=== PATIENT | female | born 1950 | race African-American/Black ===

== ENCOUNTER 2020-08-10 13:03 | Inpatient (IN) | payer MEDICARE, MEDICAID ==
[~2020-08-10] VITALS: Ht 160 cm; Wt 98.5 kg
[2020-08-10] MEDS ORDERED: ALBUTEROL (0.083%) 2.5MG/3ML NEB HHN STA (14:38)
[2020-08-10] MEDS ORDERED: IPRATROPIUM BROMIDE (0.02%) 0.5MG/2.5ML NEB HHN STA (14:38)
[2020-08-10] MEDS ORDERED: METHYLPREDNISOLONE SOD SUCC 125 MG/2 ML VIAL IV STA (14:38)
[2020-08-10] MEDS ORDERED: LEVOFLOXACIN 750MG PREMIX 150 ML IV STA (14:38)
[2020-08-10] MEDS ORDERED: SODIUM CHLORIDE 0.9% 500 ML IV ONE (14:45)
[2020-08-10 15:17] LABS: CHLORIDE 99 mEq/L (98-107)
[2020-08-10 15:18] LABS: BASOPHILS % 0.2 % (0.0-2.0); EOSINOPHILS % 0.1 % (0.0-5.0); HEMATOCRIT. 41.4 % (36.0-48.0); HEMOGLOBIN. 14.4 g/dL (12.0-16.0); LYMPHOCYTES % 11.6 % (20.0-50.0); MEAN CORPUSCULAR HEMOGLOBIN 31.6 pg (28.0-32.0); MEAN CORPUSCULAR VOLUME 90.9 fL (81.0-99.0); MEAN PLATELET VOLUME 8.5 fl (7.4-10.4); MONOCYTES % 12.2 % (2.0-8.0); NEUTROPHILS % 75.9 % (40.0-76.0); PLATELET 156 x1000/uL (130-400); RED BLOOD CELL COUNT 4.55 mill/uL (4.2-5.4); RED CELL DISTRIBUTION WIDTH 15.6 % (11.6-14.6)
[2020-08-10] MEDS ORDERED: ENOXAPARIN 40MG/0.4ML SYR SUBCUT SCH (18:30)
[2020-08-10] MEDS ORDERED: ONDANSETRON HCL 4MG/2ML INJ IV PRN (18:30)
[2020-08-10] MEDS ORDERED: DIPHENHYDRAMINE 50MG/ML VIAL IV PRN (18:30)
[2020-08-10] MEDS ORDERED: IPRATROPIUM/ALBUTEROL 0.5-3(2.5)MG/3ML NEB HHN PRN (18:30)
[2020-08-10] MEDS ORDERED: CLONIDINE 0.1MG TABLET PO PRN (18:30)
[2020-08-10 21:10] VITALS: BP 126/57
[2020-08-10] MEDS ORDERED: PRED5TAB PO (22:18)
[2020-08-10] MEDS ORDERED: FLUT1AER PO (22:18)
[2020-08-10] MEDS ORDERED: DILT360C31 PO (22:18)
[2020-08-10] MEDS ORDERED: ALBU90AE2 (22:18)
[2020-08-10] MEDS ORDERED: MONT10TA32 PO (22:18)
[2020-08-10] MEDS ORDERED: GLIM2TAB30 PO (22:18)
[2020-08-10] MEDS ORDERED: PANT40TA51 PO (22:18)
[2020-08-10] MEDS ORDERED: UMEC1DIS IH (22:18)
[2020-08-10] MEDS ORDERED: FURO20TA4 PO (22:18)
[2020-08-10] MEDS ORDERED: METHYLPREDNISOLONE SOD SUCC 125 MG/2 ML VIAL IV SCH (22:30)
[2020-08-11] VITALS: BP 119/82
[2020-08-11] MEDS ORDERED: CEFTRIAXONE 1 G PREMIX 50 ML IV SCH (00:15)
[2020-08-11] MEDS ORDERED: PANTOPRAZOLE 40MG DR TABLET PO SCH (01:00)
[2020-08-11] MEDS ORDERED: DEXAMETHASONE 4MG/ML 1ML VIAL IV SCH (01:00)
[2020-08-11] MEDS: AZITHROMYCIN 500 MG in DEXT 5% WATER 250 ML IV SCH (02:33)
[2020-08-11] MEDS ORDERED: *PATIENT'S OWN MEDICATION STORAGE XX SCH (03:30)
[2020-08-11 04:00] VITALS: BP 111/72
[2020-08-11 06:24] LABS: BASOPHILS % 0.2 % (0.0-2.0); HEMATOCRIT. 41.6 % (36.0-48.0); HEMOGLOBIN. 13.9 g/dL (12.0-16.0); LYMPHOCYTES % 16.9 % (20.0-50.0); MEAN CORPUSCULAR HEMOGLOBIN 30.7 pg (28.0-32.0); MEAN CORPUSCULAR VOLUME 91.6 fL (81.0-99.0); MEAN PLATELET VOLUME 8.8 fl (7.4-10.4); MONOCYTES % 2.8 % (2.0-8.0); NEUTROPHILS % 80.1 % (40.0-76.0); PLATELET 165 x1000/uL (130-400); RED BLOOD CELL COUNT 4.54 mill/uL (4.2-5.4); RED CELL DISTRIBUTION WIDTH 15.6 % (11.6-14.6)
[2020-08-11 06:26] LABS: CHLORIDE 102 mEq/L (98-107)
[2020-08-11 06:33] LABS: LDL CHOLESTEROL 94 mg/dL (5-100)
[2020-08-11 06:34] LABS: HDL CHOLESTEROL 75 mg/dL (40-59)
[2020-08-11 08:00] VITALS: BP 99/57
[2020-08-11] MEDS: GLIMEPIRIDE 2MG TABLET PO SCH (08:35)
[2020-08-11] MEDS: FUROSEMIDE 20MG TABLET PO SCH (08:35)
[2020-08-11] MEDS: PANTOPRAZOLE 40MG DR TABLET PO SCH (08:35)
[2020-08-11] MEDS: CEFTRIAXONE 1,000 MG in DEXTROSE 5% WATER 50 ML IV SCH (08:39)
[2020-08-11] MEDS ORDERED: [UNRECOGNIZED DRUG - OTHER] IH SCH (09:00)
[2020-08-11 11:47] LABS: BG BASE EXCESS -3.4 mmol/L (-2.0-2.0); BG CARBOXYHEMOGLOBIN 0.8 % (0.5-1.5); BG DEOXYHEMOGLOBIN 4.9 % (0.0-5.0); BG FRACTION INSPIRED OXYGEN 44; BG HCO3 ACT 22.1 mmol/L (22.0-26.0); BG METHEMOGLOBIN 0.1 % (0.0-1.5); BG OXYGEN SATURATION 95.1 % (92.0-98.5); BG OXYHEMOGLOBIN 94.2 % (94.0-97.0); BG PCO2 41.5 mmHg (35.0-45.0); BG PH 7.344 (7.350-7.450); BG PO2 77.5 mmHg (75.0-100.0); BG SAMPLE SITE RIGHT RADIAL; BG TOTAL HEMOGLOBIN 14.7 g/dL (12.0-18.0); BG VENT MODE NASAL CANNULA
[2020-08-11 11:57] VITALS: BP 100/72
[2020-08-11] MEDS ORDERED: NON FORMULARY PATIENT HOME MED XX SCH (12:00)
[2020-08-11] MEDS ORDERED: FLUTICASONE/VILANTEROL 200-25 BLST.W.DEV ORI SCH (14:00)
[2020-08-11] MEDS: [UNRECOGNIZED DRUG - OTHER] XX SCH (14:00)
[2020-08-11] MEDS ORDERED: LEVOFLOXACIN 500MG PREMIX 100 ML IV SCH (15:30)
[2020-08-11 16:00] VITALS: BP 115/75
[2020-08-11] MEDS ORDERED: DEXTROSE 50% WATER 50ML SYRINGE IV PRN (16:00)
[2020-08-11] MEDS: MONTELUKAST SODIUM 10MG TABLET PO SCH (16:36)
[2020-08-11] MEDS: BLOOD SUGAR DIAGNOSTIC STRIP TEST SCH ×2 (16:49→21:00)
[2020-08-11] MEDS: INSULIN LISPRO 100 UNITS/ML SUBCUT SCH ×2 (17:03→21:00)
[2020-08-11] MEDS: ENOXAPARIN 30MG/0.3ML SYR SUBCUT SCH (17:03)
[2020-08-11 20:00] VITALS: BP 109/73
[2020-08-11 20:51] LABS: *AMPHETAMINES SCREEN URINE NEGATIVE (NEGATIVE); *BARBITURATES SCREEN URINE NEGATIVE (NEGATIVE); *BENZODIAZEPINES SCREEN URINE NEGATIVE (NEGATIVE); *COCAINE SCREEN URINE NEGATIVE (NEGATIVE)
[2020-08-11 20:52] LABS: CANNABINOID URINE SCREEN NEGATIVE (NEGATIVE); METHADONE URINE SCREEN NEGATIVE (NEGATIVE); OPIATES URINE SCREEN PRESUMTIVE POSITIVE (NEGATIVE); PHENCYCLIDINE URINE SCREEN NEGATIVE (NEGATIVE)
[2020-08-11] MEDS: ACETAMINOPHEN 325MG TABLET PO PRN (22:37)
[2020-08-12] VITALS: BP 92/59
[2020-08-12 04:00] VITALS: BP 91/68
[2020-08-12] MEDS: ACETAMINOPHEN 325MG TABLET PO PRN ×3 (04:33→21:36)
[2020-08-12] MEDS: ENOXAPARIN 30MG/0.3ML SYR SUBCUT SCH ×2 (05:20→17:16)
[2020-08-12] MEDS: BLOOD SUGAR DIAGNOSTIC STRIP TEST SCH ×4 (07:40→21:32)
[2020-08-12 08:00] VITALS: BP 102/66
[2020-08-12] MEDS: INSULIN LISPRO 100 UNITS/ML SUBCUT SCH ×4 (08:10→21:00)
[2020-08-12] MEDS: AZITHROMYCIN 500 MG in DEXT 5% WATER 250 ML IV SCH (08:23)
[2020-08-12] MEDS: GLIMEPIRIDE 2MG TABLET PO SCH (08:23)
[2020-08-12] MEDS: PANTOPRAZOLE 40MG DR TABLET PO SCH (08:23)
[2020-08-12] MEDS: FUROSEMIDE 20MG TABLET PO SCH (08:23)
[2020-08-12] MEDS: [UNRECOGNIZED DRUG - OTHER] XX SCH (08:24)
[2020-08-12] MEDS: CEFTRIAXONE 1,000 MG in DEXTROSE 5% WATER 50 ML IV SCH (08:29)
[2020-08-12] MEDS ORDERED: DEXAMETHASONE 10 MG/ML VIAL IV SCH ×2 (09:00→17:00)
[2020-08-12 12:00] VITALS: BP 96/69
[2020-08-12] MEDS: DEXAMETHASONE 4MG/ML 1ML VIAL IV SCH ×2 (14:08→21:36)
[2020-08-12 16:00] VITALS: BP 92/65
[2020-08-12] MEDS: MONTELUKAST SODIUM 10MG TABLET PO SCH (16:28)
[2020-08-12 20:00] VITALS: BP 104/71
[2020-08-13] VITALS: BP 97/73
[2020-08-13 04:00] VITALS: BP 127/82
[2020-08-13] MEDS: ENOXAPARIN 30MG/0.3ML SYR SUBCUT SCH ×2 (05:25→17:15)
[2020-08-13] MEDS: DEXAMETHASONE 4MG/ML 1ML VIAL IV SCH ×3 (05:25→21:09)
[2020-08-13] MEDS: ACETAMINOPHEN 325MG TABLET PO PRN ×3 (06:13→21:10)
[2020-08-13] MEDS: BLOOD SUGAR DIAGNOSTIC STRIP TEST SCH ×4 (07:28→21:10)
[2020-08-13 08:00] VITALS: BP 123/83
[2020-08-13 08:01] LABS: HEMATOCRIT. 41.9 % (36.0-48.0); MEAN CORPUSCULAR HEMOGLOBIN 31.1 pg (28.0-32.0); MEAN CORPUSCULAR VOLUME 92.8 fL (81.0-99.0); MEAN PLATELET VOLUME 8.6 fl (7.4-10.4); PLATELET 170 x1000/uL (130-400); RED BLOOD CELL COUNT 4.52 mill/uL (4.2-5.4); RED CELL DISTRIBUTION WIDTH 16.2 % (11.6-14.6)
[2020-08-13 08:08] LABS: CHLORIDE 103 mEq/L (98-107)
[2020-08-13] MEDS: FUROSEMIDE 20MG TABLET PO SCH (09:01)
[2020-08-13] MEDS: CEFTRIAXONE 1,000 MG in DEXTROSE 5% WATER 50 ML IV SCH (09:01)
[2020-08-13] MEDS: FAMOTIDINE 20MG TABLET PO SCH (09:01)
[2020-08-13] MEDS: GLIMEPIRIDE 2MG TABLET PO SCH (09:01)
[2020-08-13] MEDS: ALBUTEROL 6.7GM HFA INHALER ORI PRN (09:02)
[2020-08-13] MEDS: [UNRECOGNIZED DRUG - OTHER] XX SCH (09:02)
[2020-08-13] MEDS: INSULIN LISPRO 100 UNITS/ML SUBCUT SCH ×4 (09:11→21:08)
[2020-08-13] MEDS: AZITHROMYCIN 500 MG in DEXT 5% WATER 250 ML IV SCH (10:40)
[2020-08-13 12:00] VITALS: BP 123/60
[2020-08-13] MEDS: GUAIFENESIN-DM 200MG-20MG/10ML UDC PO PRN (15:51)
[2020-08-13 16:00] VITALS: BP 126/76
[2020-08-13] MEDS: MONTELUKAST SODIUM 10MG TABLET PO SCH (17:21)
[2020-08-13 18:46] LABS: PLATELET ESTIMATE NORMAL
[2020-08-13 20:00] VITALS: BP 123/79
[2020-08-14 00:05] VITALS: BP 130/87
[2020-08-14] MEDS: ACETAMINOPHEN 325MG TABLET PO PRN ×5 (01:50→23:38)
[2020-08-14 04:00] VITALS: BP 140/80
[2020-08-14] MEDS: DEXAMETHASONE 4MG/ML 1ML VIAL IV SCH ×3 (05:25→20:17)
[2020-08-14] MEDS: ENOXAPARIN 30MG/0.3ML SYR SUBCUT SCH ×2 (05:26→16:57)
[2020-08-14] MEDS: BLOOD SUGAR DIAGNOSTIC STRIP TEST SCH ×4 (07:40→21:00)
[2020-08-14 08:00] VITALS: BP 156/81
[2020-08-14] MEDS: INSULIN LISPRO 100 UNITS/ML SUBCUT SCH ×4 (08:10→21:00)
[2020-08-14] MEDS: GLIMEPIRIDE 2MG TABLET PO SCH (08:36)
[2020-08-14] MEDS: FUROSEMIDE 20MG TABLET PO SCH (08:36)
[2020-08-14] MEDS: [UNRECOGNIZED DRUG - OTHER] XX SCH ×2 (08:37→08:46)
[2020-08-14] MEDS: FAMOTIDINE 20MG TABLET PO SCH (08:39)
[2020-08-14] MEDS: CEFTRIAXONE 1,000 MG in DEXTROSE 5% WATER 50 ML IV SCH (08:43)
[2020-08-14] MEDS: AZITHROMYCIN 500 MG in DEXT 5% WATER 250 ML IV SCH (08:43)
[2020-08-14 12:00] VITALS: BP 140/87
[2020-08-14 16:00] VITALS: BP 144/96
[2020-08-14] MEDS: MONTELUKAST SODIUM 10MG TABLET PO SCH (16:57)
[2020-08-14 20:00] VITALS: BP 126/83
[2020-08-14] MEDS: ALBUTEROL 6.7GM HFA INHALER ORI PRN (20:23)
[2020-08-14] MEDS: GUAIFENESIN-DM 200MG-20MG/10ML UDC PO PRN (22:29)
[2020-08-15] VITALS: BP 122/93
[2020-08-15] MEDS: ALBUTEROL 6.7GM HFA INHALER ORI PRN (03:34)
[2020-08-15] MEDS: ACETAMINOPHEN 325MG TABLET PO PRN ×2 (03:35→09:28)
[2020-08-15 04:00] VITALS: BP 128/95
[2020-08-15] MEDS: DEXAMETHASONE 4MG/ML 1ML VIAL IV SCH ×2 (05:12→13:07)
[2020-08-15] MEDS: ENOXAPARIN 30MG/0.3ML SYR SUBCUT SCH ×2 (05:13→17:07)
[2020-08-15 06:41] LABS: HEMATOCRIT. 46.6 % (36.0-48.0); HEMOGLOBIN. 15.3 g/dL (12.0-16.0); MEAN CORPUSCULAR HEMOGLOBIN 30.5 pg (28.0-32.0); MEAN CORPUSCULAR VOLUME 92.8 fL (81.0-99.0); MEAN PLATELET VOLUME 8.8 fl (7.4-10.4); PLATELET 244 x1000/uL (130-400); RED BLOOD CELL COUNT 5.02 mill/uL (4.2-5.4); RED CELL DISTRIBUTION WIDTH 15.9 % (11.6-14.6)
[2020-08-15] MEDS: BLOOD SUGAR DIAGNOSTIC STRIP TEST SCH ×3 (07:21→16:40)
[2020-08-15] MEDS: INSULIN LISPRO 100 UNITS/ML SUBCUT SCH ×3 (07:21→16:41)
[2020-08-15 08:00] VITALS: BP 134/82
[2020-08-15 08:34] LABS: BG BASE EXCESS -2.4 mmol/L (-2.0-2.0); BG CARBOXYHEMOGLOBIN 0.3 % (0.5-1.5); BG DEOXYHEMOGLOBIN 6.4 % (0.0-5.0); BG FRACTION INSPIRED OXYGEN 60; BG HCO3 ACT 23.8 mmol/L (22.0-26.0); BG METHEMOGLOBIN 0.8 % (0.0-1.5); BG OXYGEN SATURATION 93.5 % (92.0-98.5); BG OXYHEMOGLOBIN 92.5 % (94.0-97.0); BG PCO2 45.7 mmHg (35.0-45.0); BG PH 7.334 (7.350-7.450); BG PO2 75.8 mmHg (75.0-100.0); BG SAMPLE SITE RIGHT RADIAL; BG TOTAL HEMOGLOBIN 16.1 g/dL (12.0-18.0); BG VENT MODE MASK - SIMPLE
[2020-08-15] MEDS ORDERED: LORAZEPAM 2MG/ML CPJ IV PRN (09:00)
[2020-08-15] MEDS: FUROSEMIDE 20MG TABLET PO SCH (09:00)
[2020-08-15] MEDS: FAMOTIDINE 20MG TABLET PO SCH (09:27)
[2020-08-15] MEDS: GLIMEPIRIDE 2MG TABLET PO SCH (09:27)
[2020-08-15] MEDS: [UNRECOGNIZED DRUG - OTHER] XX SCH (09:27)
[2020-08-15] MEDS ORDERED: LIDOCAINE HCL 1% 20ML VIAL (Pyxis) INJ ONE (11:58)
[2020-08-15 12:00] VITALS: BP 190/152
[2020-08-15] MEDS: AZITHROMYCIN 500 MG in DEXT 5% WATER 250 ML IV SCH (13:10)
[2020-08-15 14:26] LABS: NUCLEATED RED BLOOD CELLS 2 /100 WBC
[2020-08-15 14:27] LABS: PLATELET ESTIMATE NORMAL
[2020-08-15] MEDS: CEFTRIAXONE 1,000 MG in DEXTROSE 5% WATER 50 ML IV SCH (15:37)
[2020-08-15 16:00] VITALS: BP 133/78
[2020-08-15] MEDS ORDERED: IVERMECTIN 3 MG TABLET PO NR (16:00)
[2020-08-15] MEDS: MONTELUKAST SODIUM 10MG TABLET PO SCH (17:06)
[2020-08-17] MEDS ORDERED: IVERMECTIN 3 MG TABLET PO NR (16:00)
== END 2020-08-15 21:20 | DRG 720 ==
LOC: ER 14:22 → 7WST 18:10 → ENRESERV 19:44 → 7WST 22:06
PROVIDERS: ADMIT Internal Medicine; ATTEND Internal Medicine
PROC: 05HM33Z Insertion of Infusion Device into Right Internal Jugular Vein, Percutaneous Approach (ICD-10-PCS; principal; 2020-08-15)
PROC: B543ZZA Ultrasonography of Right Jugular Veins, Guidance (ICD-10-PCS; 2020-08-15)
DX: A41.89 Other specified sepsis (principal); U07.1 COVID-19; J96.01 Acute respiratory failure with hypoxia; J12.82 Pneumonia due to coronavirus disease 2019; I11.0 Hypertensive heart disease with heart failure; I50.42 Chronic combined systolic (congestive) and diastolic (congestive) heart failure; E11.9 Type 2 diabetes mellitus without complications; J44.1 Chronic obstructive pulmonary disease with (acute) exacerbation; J20.8 Acute bronchitis due to other specified organisms; E66.01 Morbid (severe) obesity due to excess calories; Z91.19 Patient's noncompliance with other medical treatment and regimen; Z68.38 Body mass index [BMI] 38.0-38.9, adult; Z87.891 Personal history of nicotine dependence
CPT/HCPCS: 36415; 36600; 71045; 76937; 80048; 80053; 80061; 80305; 82375; 82728; 82805; 82962; 83036; 83880; 84443; 84484; 85025; 85379; 86140; 92950; 93005; 93970; 94644; 99291; C1725; J0456; J0696; J1100; J1650; J1815; J1956; J2060; J2930; J3490; J7040; J7060; U0003; U0005